=== PATIENT | female | born 1955 | race African-American/Black ===

== ENCOUNTER → 2016-06-14 | Outpatient (CLI) | payer BC ==
[~2016-06-14] MED LIST: ATORVASTATIN CA80 MG PO; AVAPRO300 MG PO; CENTRUM SILVER1 EAC3 PO; CILOSTAZOL100 MG PO; HYDROCHLOROTHIA25 MG PO; LO-DOSE ASPIRIN81 M2 PO; METFORMIN HCL500 MG PO; METOPROLOL SUCC50 MG PO; NORVASC5 MG PO
== END | disposition home or self-care (01) ==
LOC: CDC 15:18
DX: Z01.810 Encounter for preprocedural cardiovascular examination (principal); M31.6 Other giant cell arteritis; R51 Headache
CPT/HCPCS: 93000